=== PATIENT | male | born 1980 | race Caucasian/White ===

== ENCOUNTER 2018-09-25 14:23 | Inpatient (IN) | payer SELFPAY ==
[~2018-09-25] VITALS: Ht 170.2 cm; Wt 105.0 kg
[2018-09-25 14:30] VITALS: Ht 170.2 cm; Wt 105.0 kg
[2018-09-25 23:52] VITALS: BP 148/100
[2018-09-25 23:55] LABS: microscopic required? NO
[2018-09-26 00:06] LABS: UA SPECIFIC GRAVITY >=1.030 (1.005-1.035); urine erythrocyte NEGATIVE (NEGATIVE)
[2018-09-26 00:29] LABS: AMPHETAMINE QUAL UR POSITIVE (See below)
[2018-09-26 05:08] VITALS: BP 144/96
[2018-09-26 07:07] LABS: BASOPHIL % 0.5 % (0-2); PLATELET COUNT 192 x10^3mcL (130-400); RED CELL DISTRIBUTION WIDTH 12.2 % (11.5-14.5)
[2018-09-26 07:13] LABS: CALCIUM 7.8 mg/dL (8.5-10.1); CARBON DIOXIDE 28.3 mmol/L (21-32); CHLORIDE SERUM 105 mmol/L (98-107); CREATININE SERUM 0.9 mg/dL (0.7-1.3); GFR1 > 60 mL/min; GLUCOSE SERUM 118 mg/dL (74-106); POTASSIUM SERUM 3.6 mmol/L (3.5-5.1); SODIUM SERUM 139 mmol/L (136-145)
[2018-09-26 10:15] VITALS: BP 128/84
[2018-09-26 16:50] VITALS: BP 143/91
[2018-09-26 20:31] VITALS: BP 136/86
[2018-09-27 04:59] VITALS: BP 141/84
[2018-09-27 06:40] LABS: BASOPHIL % 0.4 % (0-2); PLATELET COUNT 170 x10^3mcL (130-400); RED CELL DISTRIBUTION WIDTH 12.1 % (11.5-14.5)
[2018-09-27 06:43] LABS: CALCIUM 7.9 mg/dL (8.5-10.1); CHLORIDE SERUM 103 mmol/L (98-107); CREATININE SERUM 0.8 mg/dL (0.7-1.3); GFR1 > 60 mL/min; GLUCOSE SERUM 117 mg/dL (74-106); POTASSIUM SERUM 3.8 mmol/L (3.5-5.1); SODIUM SERUM 137 mmol/L (136-145)
[2018-09-27 09:00] VITALS: BP 152/101
[2018-09-27 16:39] VITALS: BP 147/91
[2018-09-27 22:36] VITALS: BP 145/85
[2018-09-28 06:18] VITALS: BP 145/93
[2018-09-28 06:53] LABS: BASOPHIL % 0.4 % (0-2); PLATELET COUNT 186 x10^3mcL (130-400); RED CELL DISTRIBUTION WIDTH 12.5 % (11.5-14.5)
[2018-09-28 06:55] LABS: CALCIUM 7.9 mg/dL (8.5-10.1); CARBON DIOXIDE 26.7 mmol/L (21-32); CHLORIDE SERUM 103 mmol/L (98-107); CREATININE SERUM 0.8 mg/dL (0.7-1.3); GFR1 > 60 mL/min; GLUCOSE SERUM 129 mg/dL (74-106); POTASSIUM SERUM 3.9 mmol/L (3.5-5.1); SODIUM SERUM 135 mmol/L (136-145)
[2018-09-28 13:21] VITALS: BP 114/69
[2018-09-28 16:20] VITALS: BP 133/87
[2018-09-28 21:58] VITALS: BP 134/87
[2018-09-29 05:47] VITALS: BP 137/86
[2018-09-29 06:11] LABS: BASOPHIL % 0.5 % (0-2); PLATELET COUNT 193 x10^3mcL (130-400); RED CELL DISTRIBUTION WIDTH 12.8 % (11.5-14.5)
[2018-09-29 06:31] LABS: CARBON DIOXIDE 28.3 mmol/L (21-32); CHLORIDE SERUM 106 mmol/L (98-107); CREATININE SERUM 0.8 mg/dL (0.7-1.3); GFR1 > 60 mL/min; GLUCOSE SERUM 137 mg/dL (74-106); MAGNESIUM 2.1 mg/dL (1.8-2.4); PHOSPHOROUS 3.2 mg/dL (2.5-4.9); POTASSIUM SERUM 4.1 mmol/L (3.5-5.1); SODIUM SERUM 139 mmol/L (136-145)
[2018-09-29 07:40] VITALS: BP 137/81
[2018-09-29 15:55] VITALS: BP 144/88
[2018-09-29 21:07] VITALS: BP 147/88
[2018-09-30 06:11] VITALS: BP 149/99
[2018-09-30 06:56] LABS: BASOPHIL % 0.5 % (0-2); PLATELET COUNT 222 x10^3mcL (130-400); RED CELL DISTRIBUTION WIDTH 12.9 % (11.5-14.5)
[2018-09-30 07:22] LABS: CALCIUM 8.3 mg/dL (8.5-10.1); CARBON DIOXIDE 27.6 mmol/L (21-32); CHLORIDE SERUM 102 mmol/L (98-107); CREATININE SERUM 0.7 mg/dL (0.7-1.3); GFR1 > 60 mL/min; GLUCOSE SERUM 120 mg/dL (74-106); PHOSPHOROUS 2.7 mg/dL (2.5-4.9); POTASSIUM SERUM 4.1 mmol/L (3.5-5.1); SODIUM SERUM 136 mmol/L (136-145)
[2018-09-30 09:51] VITALS: BP 146/94
[2018-09-30 18:28] VITALS: BP 136/93
[2018-09-30 21:24] VITALS: BP 139/76
[2018-10-01 05:35] VITALS: BP 109/61
[2018-10-01 07:34] LABS: CALCIUM 8.5 mg/dL (8.5-10.1); CARBON DIOXIDE 27.5 mmol/L (21-32); CHLORIDE SERUM 102 mmol/L (98-107); CREATININE SERUM 0.8 mg/dL (0.7-1.3); GFR1 > 60 mL/min; GLUCOSE SERUM 122 mg/dL (74-106); MAGNESIUM 2.3 mg/dL (1.8-2.4); PHOSPHOROUS 3.1 mg/dL (2.5-4.9); POTASSIUM SERUM 4.1 mmol/L (3.5-5.1); SODIUM SERUM 136 mmol/L (136-145)
[2018-10-01 07:40] LABS: BASOPHIL % 0.3 % (0-2); PLATELET COUNT 251 x10^3mcL (130-400)
[2018-10-01 08:45] VITALS: BP 143/97
[2018-10-01] MEDS ORDERED: IBUPROFEN800 MG PO (09:32)
[2018-10-01 12:58] VITALS: BP 143/97
== END 2018-10-01 15:45 | disposition home or self-care (01) | DRG 504 ==
LOC: ED 14:23 → MU 19:37
PROVIDERS: Internal Medicine; Neuromusculoskeletal Medicine, Sports Medicine; Nutritionist Nutrition, Education; ADMIT General Practice
PROC: 0PSLXZZ Reposition Left Ulna, External Approach (ICD-10-PCS; 2018-09-28)
PROC: 0QSM04Z Reposition Left Tarsal with Internal Fixation Device, Open Approach (ICD-10-PCS; principal; 2018-09-28 07:30)
PROC: 0PSJXZZ Reposition Left Radius, External Approach (ICD-10-PCS; 2018-09-28 07:30)
DX: S92.012A Displaced fracture of body of left calcaneus, initial encounter for closed fracture (principal); S52.572A Other intraarticular fracture of lower end of left radius, initial encounter for closed fracture; S52.612A Displaced fracture of left ulna styloid process, initial encounter for closed fracture; E11.65 Type 2 diabetes mellitus with hyperglycemia; I10 Essential (primary) hypertension; W11.XXXA Fall on and from ladder, initial encounter; E66.9 Obesity, unspecified; F17.210 Nicotine dependence, cigarettes, uncomplicated; Y92.69 Other specified industrial and construction area as the place of occurrence of the external cause; Y93.H3 Activity, building and construction; Y99.0 Civilian activity done for income or pay; Z79.84 Long term (current) use of oral hypoglycemic drugs; Z68.34 Body mass index [BMI] 34.0-34.9, adult
CPT/HCPCS: 76001; 82962; 83880; 97110-GP; 97112-GP; 97116-GP; 97530-GP; C1713; J0690; J1170; J1644; J1885; J2270; J2405; J3010; J3490; J7030; J7050; Q0092